=== PATIENT | male | born 2000 | race African-American/Black ===

== ENCOUNTER 2020-06-04 15:27 | Emergency (ER) | payer MEDICAID ==
[~2020-06-04] VITALS: Ht 182.9 cm; Wt 73.5 kg
[2020-06-04 16:16] VITALS: BP 114/81
[2020-06-04] MEDS ORDERED: cefTRIAXone SOD 1,000 MG VL IM ONE (16:45)
== END 2020-06-04 17:20 | disposition home or self-care (01) ==
LOC: ER 15:27
DX: S00.521A Blister (nonthermal) of lip, initial encounter (principal); J03.90 Acute tonsillitis, unspecified; X58.XXXA Exposure to other specified factors, initial encounter; Y93.89 Activity, other specified; Y92.89 Other specified places as the place of occurrence of the external cause; Y99.8 Other external cause status
CPT/HCPCS: 96372; 99283; J0696

== ENCOUNTER 2021-07-31 13:39 | Emergency (ER) | payer MEDICAID ==
[~2021-07-31] VITALS: Ht 182.9 cm; Wt 83.0 kg
[2021-07-31 13:42] VITALS: BP 111/66
[2021-07-31] MEDS ORDERED: CEPH500T PO (15:09)
[2021-07-31] MEDS ORDERED: IBUP800T27 PO (15:09)
== END 2021-07-31 15:21 | disposition home or self-care (01) ==
LOC: ER 13:39
DX: L02.426 Furuncle of left lower limb (principal); Z79.1 Long term (current) use of non-steroidal anti-inflammatories (NSAID); Z79.899 Other long term (current) drug therapy